=== PATIENT | male | born 1980 | race Caucasian/White ===

== ENCOUNTER 2016-11-10 08:53 | Emergency (ER) | payer OTHER ==
[~2016-11-10] VITALS: Ht 167.6 cm; Wt 70.6 kg
[2016-11-10 08:57] VITALS: BP 130/86
[2016-11-10] MEDS ORDERED: FLUORESCEIN OPHTHALMIC 1 MG STRIP ONE (09:07)
[2016-11-10] MEDS ORDERED: PROPARACAINE OPHTH 0.5%, 15ML ONE (09:08)
== END 2016-11-10 11:28 | disposition home or self-care (01) ==
LOC: ED 09:50
DX: T15.01XA Foreign body in cornea, right eye, initial encounter (principal); W45.8XXA Other foreign body or object entering through skin, initial encounter; Y93.89 Activity, other specified; Y92.89 Other specified places as the place of occurrence of the external cause; Y99.8 Other external cause status
CPT/HCPCS: 65222